=== PATIENT | female | born 1960 | race American Indian/Alaskan Native ===

== ENCOUNTER 2020-06-26 21:06 | Emergency (ER) | payer SELFPAY ==
[2020-06-26] MEDS ORDERED: hydrALAZINE 25 MG TAB PO ONE (22:47)
--- NOTE | 2020-06-26 23:37 | Emergency Department Report ---
ED General Adult HPI - General Chief complaint: High BP Stated complaint: HIGH BP Time Seen by Provider: 06/26/20 22:33 Source: patient Mode of arrival: Ambulatory Limitations: No Limitations - History of Present Illness Initial comments: Patient is a 59-year-old -[place] female with history of hypertension. States she started BP medications 1 week ago. Noted that her BP was high tonight at 176/100. Patient states intermittent dizziness for the last 2 months. Current medications include hydrochlorothiazide 12.5 mg lisinopril 20 mg clonidine 0.1 mg daily, patient does have a primary care doctor, however has been unable to get an appointment this week. Patient does have BP log. There is no chest pain, lightheadedness, shortness of breath, diaphoresis, or nausea vomiting. Severity scale (0 -10): 0 - Related Data Home Medications Medication Instructions Recorded Confirmed Last Taken Hydrochlorothiazide 12.5 mg PO DAILY 06/26/20 06/26/20 Unknown cloNIDine 0.1 mg PO DAILY 06/26/20 06/26/20 Unknown lisinopriL [Zestril TAB] 1 tab PO DAILY 06/26/20 06/26/20 Unknown Previous Rx's Medication Instructions Recorded Last Taken Type Naproxen 500 mg PO Q12H PRN #20 tablet 12/27/19 Unknown Rx Allergies Allergy/AdvReac Type Severity Reaction Status Date / Time No Known Allergies Allergy Unverified 12/27/19 14:06 ED Review of Systems ROS: Stated complaint: HIGH BP Other details as noted in HPI Constitutional: denies: chills, fever Eyes: denies: eye pain, eye discharge, vision change ENT: denies: ear pain, throat pain Respiratory: denies: cough, shortness of breath, wheezing Cardiovascular: denies: chest pain, palpitations Endocrine: no symptoms reported Gastrointestinal: denies: abdominal pain, nausea, vomiting, diarrhea Genitourinary: as per HPI Musculoskeletal: denies: back pain, joint swelling, arthralgia Skin: denies: rash, lesions Neurological: denies: headache, weakness, paresthesias, confusion, vertigo Psychiatric: denies: anxiety, depression Hematological/Lymphatic: denies: easy bleeding, easy bruising ED Past Medical Hx - Past Medical History Previous Medical History?: Yes Hx Hypertension: Yes Additional medical history: Obesity - Surgical History Past Surgical History?: Yes Additional Surgical History: Hysterectomy - Social History Smoking Status: Never Smoker Substance Use Type: None - Medications Home Medications: Home Medications Medication Instructions Recorded Confirmed Last Taken Type Naproxen 500 mg PO Q12H PRN #20 tablet 12/27/19 Unknown Rx Hydrochlorothiazide 12.5 mg PO DAILY 06/26/20 06/26/20 Unknown History cloNIDine 0.1 mg PO DAILY 06/26/20 06/26/20 Unknown History lisinopriL [Zestril TAB] 1 tab PO DAILY 06/26/20 06/26/20 Unknown History ED Physical Exam - General Limitations: No Limitations General appearance: alert, in no apparent distress - Head Head exam: Present: atraumatic, normocephalic - Eye Eye exam: Present: normal appearance, PERRL, EOMI Pupils: Present: normal accommodation - ENT ENT exam: Present: normal orophraynx, mucous membranes moist, TM's normal bilaterally, normal external ear exam - Neck Neck exam: Present: normal inspection, full ROM. Absent: tenderness, lymphadenopathy - Respiratory Respiratory exam: Present: normal lung sounds bilaterally. Absent: respiratory distress, wheezes, stridor - Cardiovascular Cardiovascular Exam: Present: regular rate, normal rhythm, normal heart sounds. Absent: systolic murmur, diastolic murmur, rubs, gallop - GI/Abdominal GI/Abdominal exam: Present: soft, normal bowel sounds. Absent: distended, tenderness, guarding, rebound, rigid, bruit, hernia - Rectal Rectal exam: Present: deferred - Extremities Exam Extremities exam: Present: normal inspection, full ROM, normal capillary refill. Absent: pedal edema - Back Exam Back exam: Present: normal inspection, full ROM. Absent: tenderness, CVA ten derness (R), CVA tenderness (L) - Neurological Exam Neurological exam: Present: alert, oriented X3, CN II-XII intact, normal gait, reflexes normal - Psychiatric Psychiatric exam: Present: normal affect, normal mood - Skin Skin exam: Present: warm, dry, intact, normal color. Absent: rash ED Course Vital Signs 06/26/20 06/26/20 06/26/20 21:26 23:15 23:16 Temperature 97.9 F Pulse Rate 82 75 Respiratory 18 16 Rate Blood Pressure 184/105 Blood Pressure 176/100 [Left] O2 Sat by Pulse 99 99 Oximetry ED Medical Decision Making - Medical Decision Making This patient denies symptoms at this time BP improved, patient advised to take BP medications as prescribed, follow-up with PCP tomorrow, return to ED should she develop symptoms including headache dizziness chest pain shortness of breath decrease or loss of vision. Patient verbalizes agreement and understanding with discharge plan. Patient DC'd home in stable condition at this time. Critical care attestation.: If time is entered above; I have spent that time in minutes in the direct care of this critically ill patient, excluding procedure time. ED Disposition Clinical Impression: Essential hypertension Disposition: DC-01 TO HOME OR SELFCARE Is pt being admited?: No Does the pt Need Aspirin: No Condition: Stable Instructions: Hypertension (ED) Additional Instructions: continue medications as prescribed , follow up with your doctor tomorrow, return to emergency if symptoms worsen. Referrals: JASPER OCHOA JR, MD [Referring] - [place] Forms: Work/School Release Form(ED) Time of Disposition: 23:40
[2020-06-27 00:04] VITALS: BP 160/100
== END 2020-06-26 23:50 | disposition home or self-care (01) ==
LOC: ED 21:06
DX: I10 Essential (primary) hypertension (principal); Z90.710 Acquired absence of both cervix and uterus; Z79.899 Other long term (current) drug therapy
CPT/HCPCS: 99282